=== PATIENT | male | born 1950 | race Caucasian/White ===

== ENCOUNTER 2023-05-03 10:27 | Outpatient (OUT) | payer MEDICARE, BC, SELFPAY ==
[2023-05-03 11:04] LABS: Basophils Absolute Auto 0.1 10^3/uL (0.0-0.1); Basophils Percent Auto 0.9 % (0.2-2.0); Eosinophils Absolute Auto 0.2 10^3/uL (0.0-0.7); Eosinophils Percent Auto 2.8 % (0.9-7.0); Hematocrit 42.6 % (42.0-54.0); Hemoglobin 13.7 g/dL (14.0-18.0); Immature Granulocytes Abs Auto 0.01 10^3/uL (0.00-0.03); Immature Granulocytes Pct Auto 0.2 % (0.0-0.5); Lymphocytes Absolute Auto 1.1 10^3/uL (1.2-3.8); Lymphocytes Percent Auto 20.8 % (20.5-60.0); Mean Corpuscular HGB Conc 32.2 g/dL (29.9-35.2); Mean Corpuscular Hemoglobin 29.6 pg (25.9-34.0); Mean Platelet Volume 10.7 fL (9.5-13.5); Monocytes Absolute Auto 0.5 10^3/uL (0.3-0.8); Monocytes Percent Auto 10.1 % (1.7-12.0); Neutrophils Absolute Auto 3.5 10^3/uL (1.4-6.5); Neutrophils Percent Auto 65.2 % (43.0-75.0); Platelet Count 183 10^3/uL (150-450); Red Blood Count 4.63 10^6/uL (4.70-6.10); White Blood Count 5.3 10^3/uL (4.0-11.0)
[2023-05-03 13:02] LABS: Alanine Aminotransferase 21 U/L (16-63); Albumin Globulin Ratio 1.1; Albumin Level 3.6 g/dL (3.4-5.0); Alkaline Phosphatase 63 U/L (46-116); Anion Gap 8.6; Aspartate Amino Transferase 19 U/L (15-37); BUN Creatinine Ratio 18.9; Bilirubin Total 0.8 mg/dL (0.2-1.0); Carbon Dioxide 33.5 mmol/L (21.0-32.0); Chloride 103 mmol/L (98-107); Chol HDL Ratio 2.6; Cholesterol 151 mg/dL (<=200); Estimated GFR (African America >60 (>=60); Estimated GFR (Non-African Ame >60 (>=60); Globulin 3.4 g/dL; Glucose 91 mg/dL (74-106); HDL Cholesterol 58 mg/dL (40-60); Potassium 4.1 mmol/L (3.5-5.1); Sodium 141 mmol/L (136-145); Triglycerides 50 mg/dL (<=150)
== END 2023-05-03 10:28 | disposition home or self-care (01) ==
LOC: LAB 10:33
PROVIDERS: PCP Nurse Practitioner Family; Visit Provider Nurse Practitioner Family
DX: E78.2 Mixed hyperlipidemia (principal); N40.0 Benign prostatic hyperplasia without lower urinary tract symptoms
CPT/HCPCS: 36415; 80053; 80061; 85025

== ENCOUNTER 2024-03-25 09:00 | Outpatient (OUT) | payer MEDICARE, BC, SELFPAY ==
--- NOTE | 2024-03-25 09:06 | ECG_ITS ---
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
--- NOTE | 2024-03-25 09:32 | XR_ITS ---
The [address] [address] Patient Name: JORGE BURGOS MRN: [id number] date: 1950 Sex: M Assigned Patient Location: [facility] Current Patient Location: [facility] Accession/Order Number: [id number] Exam Date: 03/25/2024 09:55 Report Date: 03/25/2024 10:26 At the request of: LAINA HOOKS Procedure: XR chest 2V PROCEDURE: XR chest 2V DATE: 03/25/2024 9:55 AM EST COMPARISONS: None. CLINICAL INDICATION: 74 years Male Preop exam FINDINGS: The cardiomediastinal silhouette and pulmonary vasculature are within normal limits. The lungs are clear. There is no evidence of pleural effusion or pneumothorax. It appears there may be a hiatal hernia overlying the lower posterior mediastinum difficult to perfectly evaluated on these images. There is mild thoracic and upper lumbar degenerative spondylosis noted on these images. There is moderate thoracic kyphosis. Frontal view suggests moderate scoliosis of the lower thoracic spine convexity toward the left and of the upper lumbar spine convexity toward the right. XR/XR chest 2V IMPRESSION: No evidence of acute abnormalities. Findings as discussed above. Electronically authenticated by: MUSHTAQ FISHER Date: 03/25/2024 10:26
--- NOTE | 2024-03-25 09:50 | P.GSHP_ITS ---
History of Present Illness History of Present Illness Chief complaint: bph Narrative: Patient presents for preadmission testing. The patient states he had an elevated PSA and previous prostate biopsies, he continues to have burning with urination, incomplete bladder emptying, and nocturia with postvoid dribbling. Patient denies hematuria, abdominal pain, fever, nausea, vomiting, or any other complaints. Review of Systems ROS Narrative REVIEW OF SYSTEMS: Negative except as stated in HPI, ten or more systems reviewed. Constitutional: No fever, chills, weakness ENT: No sore throat or epistaxis Cardiovascular: No edema, chest pain, palpitations, or activity intolerance Respiratory: No cough, chronic intermittent shortness of breath and wheezing Musculoskeletal: No joint pain or swelling Gastrointestinal: No abdominal pain, constipation, diarrhea, or vomiting Neurological: No numbness, tingling, weakness, or headache Psychiatric: No mood changes [facility] Medical History (Updated 03/25/24 @ 09:46 by Reyna Smith NP) Environmental allergies ?Z91.09 - Other allergy status, other than to drugs and biological substances (ICD-10) Arthritis ?M19.90 - Unspecified osteoarthritis, unspecified site (ICD-10) Knee pain ?M25.569 - Pain in unspecified knee (ICD-10) Chronic obstructive pulmonary disease ?J44.9 - Chronic obstructive pulmonary disease, unspecified (ICD-10) Ocular migraine ?G43.109 - Migraine with aura, not intractable, without status migrainosus (ICD-10) Elevated PSA ?R97.20 - Elevated prostate specific antigen [PSA] (ICD-10) Erectile dysfunction ?N52.9 - Male erectile dysfunction, unspecified (ICD-10) Dyspnea on exertion ?R06.09 - Other forms of dyspnea (ICD-10) High cholesterol ?E78.00 - Pure hypercholesterolemia, unspecified (ICD-10) Delayed recovery from anesthesia Tremor ?R25.1 - Tremor, unspecified (ICD-10) BPH with obstruction/lower urinary tract symptoms ?N40.1 - Benign prostatic hyperplasia with lower urinary tract symptoms (ICD- 10) ?N13.8 - Other obstructive and reflux uropathy (ICD-10) Esophageal stricture ?K22.2 - Esophageal obstruction (ICD-10) Esophageal dilatation ?K22.89 - Other specified disease of esophagus (ICD-10) Nasal polyp ?J33.9 - Nasal polyp, unspecified (ICD-10) Surgical History (Updated 03/25/24 @ 09:31 by Reyna Smith NP) H/O eye surgery ?Z98.890 - Other specified postprocedural states (ICD-10) H/O nasal polypectomy ?Z98.890 - Other specified postprocedural states (ICD-10) ?Z87.09 - Personal history of other diseases of the respiratory system (ICD- 10) History of esophagogastroduodenoscopy (EGD) ?Z98.890 - Other specified postprocedural states (ICD-10) History of colonoscopy ?Z98.890 - Other specified postprocedural states (ICD-10) Hx of prostate biopsy ?Z98.890 - Other specified postprocedural states (ICD-10) Family History (Updated 03/25/24 @ 09:31 by Reyna Smith NP) Other Family history of colon cancer Family history of heart disease Family history of hypertension Family history of myocardial infarction Social History (Updated 03/25/24 @ 09:24 by Reyna Smith NP) Within the past year, how often did you have a drink containing alcohol: monthly or less Smoking status: Never smoker Non-prescribed substance use: denies use Previous occupational history: Retired Highest level of school completed/degree received: high school graduate Meds Home Medications and Allergies Home Medications ?Medication ?Instructions ?Recorded ?Confirmed ?Type albuterol sulfate 90 mcg/actuation 2 inh inhalation Q4H PRN shortness 03/25/24 03/25/24 History aerosol inhaler (Ventolin HFA) of breath or wheezing ezetimibe 10 mg-simvastatin 40 mg 1 tab PO DAILY 03/25/24 03/25/24 History tablet olopatadine 0.2 % eye drops (Eye 1 drp ophthalmic (eye) DAILY 03/25/24 03/25/24 History Allergy Itch Relief) pantoprazole 40 mg tablet,delayed 40 mg PO DAILY 03/25/24 03/25/24 History release propranolol 40 mg tablet 40 mg PO BID tremor 03/25/24 03/25/24 History tadalafil 10 mg tablet 10 mg PO DAILY 03/25/24 03/25/24 History tamsulosin 0.4 mg capsule 0.4 mg PO DAILY 03/25/24 03/25/24 History Allergies Allergy/AdvReac Type Severity Reaction Status Date / Time tomato Allergy tongue Verified 03/25/24 09:22 swelling Exam Narrative Exam Narrative: Constitutional: Awake, alert, comfortable, well-appearing, nontoxic, interactive, vital signs as charted Head: Normocephalic, atraumatic Neck: Supple, normal appearance, normal range of motion, no meningeal signs, no lymphadenopathy Respiratory: No respiratory distress, breath sounds clear Cardiovascular: Regular rate and rhythm, strong and regular heart tones Abdomen: Nontender, normal bowel sounds, soft, no CVA tenderness Musculoskeletal: Normal gait, no swelling or edema Skin: No rashes or induration, no lesions, only visible skin inspected Neuro: Mild tremor bilateral hands, normal sensation, no other gross neurological deficits Psychiatric: Oriented ?3, normal affect Assessment and Plan Assessment and Plan (1) BPH with obstruction/lower urinary tract symptoms: (2) Elevated PSA: Plan Cystoscopy, TURP scheduled with Dr. Mosley April 04, 2024.
[2024-03-25 10:03] LABS: Basophils Absolute Auto 0.1 10^3/uL (0.0-0.1); Basophils Percent Auto 0.9 % (0.2-2.0); Eosinophils Absolute Auto 0.1 10^3/uL (0.0-0.7); Eosinophils Percent Auto 2.1 % (0.9-7.0); Hemoglobin 14.7 g/dL (14.0-18.0); Immature Granulocytes Abs Auto 0.02 10^3/uL (0.00-0.03); Immature Granulocytes Pct Auto 0.3 % (0.0-0.5); Lymphocytes Absolute Auto 1.2 10^3/uL (1.2-3.8); Lymphocytes Percent Auto 18.2 % (20.5-60.0); Mean Corpuscular HGB Conc 33.4 g/dL (29.9-35.2); Mean Corpuscular Hemoglobin 29.9 pg (25.9-34.0); Mean Corpuscular Volume 89.4 fL (80.0-94.0); Mean Platelet Volume 10.2 fL (9.5-13.5); Monocytes Absolute Auto 0.6 10^3/uL (0.3-0.8); Monocytes Percent Auto 8.7 % (1.7-12.0); Neutrophils Absolute Auto 4.6 10^3/uL (1.4-6.5); Neutrophils Percent Auto 69.8 % (43.0-75.0); Platelet Count 214 10^3/uL (150-450); Red Blood Count 4.92 10^6/uL (4.70-6.10); Red Cell Distribution Width 11.9 % (11.0-15.0); White Blood Count 6.6 10^3/uL (4.0-11.0)
[2024-03-25 10:15] LABS: INR 1.04; Partial Thromboplastin Time 26.4 sec (22.3-36.2)
[2024-03-25 11:31] LABS: Anion Gap 12.2; BUN Creatinine Ratio 21.1; Calcium 9.3 mg/dL (8.5-10.1); Carbon Dioxide 29.4 mmol/L (21.0-32.0); Chloride 106 mmol/L (98-107); Estimated GFR (African America >60 (>=60 mL/min/1.73m^2); Estimated GFR (Non-African Ame >60 (>=60 mL/min/1.73m^2); Glucose 106 mg/dL (74-106); Potassium 4.6 mmol/L (3.5-5.1); Sodium 143 mmol/L (136-145)
[2024-03-25 12:22] LABS: Prostate Specific Antigen Dx 12.23 ng/mL (<=4.00)
== END 2024-03-25 09:01 | disposition home or self-care (01) ==
LOC: PST 09:01
PROVIDERS: PCP Nurse Practitioner Family; Visit Provider Urology
DX: Z01.810 Encounter for preprocedural cardiovascular examination (principal); Z01.812 Encounter for preprocedural laboratory examination; Z01.818 Encounter for other preprocedural examination; N40.1 Benign prostatic hyperplasia with lower urinary tract symptoms
CPT/HCPCS: 71046; 80048; 84153; 85025; 85610; 85730; 93005; G0463

== ENCOUNTER 2024-04-04 12:35 | Day surgery (SDC) | payer MEDICARE, BC, SELFPAY ==
[2024-03-25 09:40] VITALS: BP 124/67; PULSE 60; TEMP 36.6; O2SAT 99; BMI 22.0
[2024-04-04] VITALS (13 sets, daily range): BP systolic 115–152; BP diastolic 64–79; PULSE 52–71; TEMP 36.2–36.6; O2SAT 91–96; BMI 22.0
[2024-04-04] MEDS: LACTATED RINGER'S SOLUTION 1,000 ML 50 ML IV ×2 (13:03→15:30)
[2024-04-04] MEDS: LEVOFLOXACIN IN DEXTROSE 5 % 500 MG/100 ML PREMIX 100 MG IV (13:56)
--- NOTE | 2024-04-04 16:18 | PM.URSON ---
Urology Surgery Operative Note Operative Note Procedure Date: 04/04/24 Time Out Performed: yes Pre-op Diagnosis: BPH with LUTS refractory to medications Post-op Diagnosis: same as pre-op Procedures performed: 1. Cystoscopy. 2. Transurethral resection of the prostate. Anesthesia: GETA Primary Surgeon: Guero Mosley Complications: None Estimated blood loss (mL): 30 Findings: Very long capacious obstructing lateral lobes. Large median lobe Specimens: Prostate chips Drains: 22 Belgian three-way coud? Gonzalez catheter in the bladder taped to traction and CBI Indications for Procedures: This gentleman has a long history of BPH with LUTS. He takes the Flomax and tadalafil and he is still very symptomatic. He has a chronically elevated PSA and chronic prostatitis by biopsy. He is desirous for TURP. He has signed an informed consent after risks were explained. Some of these risks include bleeding, infection, anesthesia, retrograde ejaculation, incontinence both temporary and permanent, erectile dysfunction and possible need for further operations just to name a few. Detailed description of Procedure: The patient was brought to the operating room and placed on the operating room table in the supine position. SCDs were placed on the lower extremities and turned on and functioning during the entire case. Timeout was done by all parties in the room. We all agreed upon the patient's identification and the planned procedures for this patient. Genn. anesthesia was then administered. The patient was then repositioned into the modified dorsal lithotomy position. All pressure points were satisfactorily padded. Genitalia were sterilely prepped and draped in usual fashion. I started by passing a 26 Belgian Olympus resectoscope with a standard bipolar loop electrode per urethra and into the bladder. The ureteral orifices were marked with a loop electrode. I then started on the median lobe and uniformly resected this down to the bladder neck level. It was very capacious. I then brought the scope back to the Veru and resected the left lateral lobe from the bladder neck to the apex. Purulence pockets were unroofed. This was incredibly capacious. There was a diffuse ooze of blood during the entire case. The right lateral lobe and capacious anterior tissue was then resected. Purulence pockets were unroofed here also. Intermittently I had to switch to the vaporization loop electrode to maintain hemostasis. The apex was then opened up because the apical lobes were coapting rather tightly distal to the Veru. The Ilich evacuator was used numerous times to get the chips out of the bladder and these were sent for permanent sections. Upon completion the prostatic urethra and bladder neck were now wide open. There was no bleeding. There were no chips remaining in the bladder. The scope was then removed. I then placed a 22 Belgian three-way coud? Gonzalez catheter in the bladder. It was manually irrigated with a Dione syringe to verify placement. 30 cc of fluid was placed in the balloon. It was taped to traction and CBI was started. It irrigated to a light pink color. The anesthetic was then reversed. He was then transferred to a [facility] bed and wheeled to PACU in stable condition. Urinary Catheter Management Urinary Catheter Management 3-way Urethral: Cath placed during this visit: no
[2024-04-04] MEDS: SOLIFENACIN SUCCINATE 10 MG TABLET PO (17:35)
[2024-04-04] MEDS: 0.9 % SODIUM CHLORIDE 1,000 ML 80 ML IV (17:36)
[2024-04-04] MEDS: SODIUM CHLORIDE IRRIG SOLUTION 3,000 ML 3000 ML IRR ×6 (17:37→23:21)
[2024-04-04] MEDS: PROPRANOLOL HCL 20 MG TABLET 40 MG PO (20:56)
[2024-04-05] VITALS: BP 110/62; PULSE 56; TEMP 36.6; O2SAT 92
[2024-04-05] MEDS: SODIUM CHLORIDE IRRIG SOLUTION 3,000 ML 3000 ML IRR ×5 (00:23→03:52)
[2024-04-05 04:00] VITALS: BP 109/63; PULSE 69; TEMP 36.7
--- NOTE | 2024-04-05 05:11 | PC.NURSE ---
0500 traction released and CBI weaned
[2024-04-05] MEDS: OMEPRAZOLE 40 MG CAPSULE.DR PO (06:08)
[2024-04-05 08:40] VITALS: BP 112/66; PULSE 83; TEMP 36.9; O2SAT 95
[2024-04-05] MEDS: PROPRANOLOL HCL 20 MG TABLET 40 MG PO (08:49)
[2024-04-05] MEDS: SOLIFENACIN SUCCINATE 10 MG TABLET PO (08:49)
== END 2024-04-05 09:45 | disposition home or self-care (01) ==
LOC: SURGOUT 16:15 → MS 17:12 → SURGOUT 04-05 07:46 → MS 04-05 07:52
PROVIDERS: PCP Nurse Practitioner Family; Visit Provider Urology
PROC: (CPT 52601; principal; 2024-04-04 13:30)
DX: N40.1 Benign prostatic hyperplasia with lower urinary tract symptoms (principal); N52.9 Male erectile dysfunction, unspecified; R25.1 Tremor, unspecified; R97.20 Elevated prostate specific antigen [PSA]; I10 Essential (primary) hypertension; J44.9 Chronic obstructive pulmonary disease, unspecified; N41.1 Chronic prostatitis; E78.5 Hyperlipidemia, unspecified; K21.9 Gastro-esophageal reflux disease without esophagitis; K44.9 Diaphragmatic hernia without obstruction or gangrene
CPT/HCPCS: 52601; 36415; 88305; J0131; J1100; J2250; J2371; J2405; J2704; J3010

== ENCOUNTER 2024-05-06 10:10 | Outpatient (OUT) | payer MEDICARE, BC, SELFPAY ==
[2024-05-06 10:43] LABS: Chol HDL Ratio 2.8; Cholesterol 166 mg/dL (<=200); HDL Cholesterol 60 mg/dL (40-60); LDL Cholesterol Calculated 94.4 mg/dL; Triglycerides 58 mg/dL (<=150); VLDL CHOLESTEROL 11.6 mg/dL
== END 2024-05-06 10:11 | disposition home or self-care (01) ==
LOC: LAB 10:13
PROVIDERS: PCP Nurse Practitioner Family; Visit Provider Nurse Practitioner Family
DX: Z00.00 Encounter for general adult medical examination without abnormal findings (principal); E78.2 Mixed hyperlipidemia
CPT/HCPCS: 36415; 80061

== ENCOUNTER 2025-05-09 09:51 | Outpatient (OUT) | payer MEDICARE, BC, SELFPAY ==
--- OUTSIDE RECORDS SUMMARY | 2025-05-09 04:42 | XMS_ITS | Continuity of Care Document ---
Author Organization [facility] Address [address] [place] [address] Phone Care Team Providers Care Pulmonary Physician Name Role Phone Jessica Wilcox APRN Primary Care Provider Jessica Wilcox APRN Attending Provider Care Teams Patient Care Team Team Status: Active Member Role/Relationship Status Dates Jessica Wilcox APRN PIPE OUT WORKER-C Primary Care Provider Active Patient Care Team Team Status: Inactive Member Role/Relationship Status Dates Jessica Wilcox APRN PIPE OUT WORKER-C Primary Care Provider Active Start: May 092024 End: May 09, 2025Jessica Wilcox APRN PIPE OUT WORKER-CAttending ProviderActive Start: May 09, 2025 End: May 09, 2025 Chief Complaint and Reason for Visit Chief Complaint Admit Date Wellness May 09, 2025 8:55am Reason for Visit Admit Date Impaired fasting glucose May 09, 2025 8:55am Mixed hyperlipidemia May 09, 2025 8:55am Allergies, Adverse Reactions, Alerts Allergen Type Severity Reaction Last Updated Verified Status cat dander Allergy Unknown Unknown Reaction May 09, 2025 8:40am Yes Active tomato Allergy Unknown Unknown Reaction May 09, 2025 8:40am Yes Active Social History Smoking Status Status Start Date End Date Date of Observa tion Never smoked tobacco (finding) May 06, 2024 7:53am Observation Status Observation Response Date of Response Legal Sex Male (finding) Sex Assigned At BirthMaleOctober 1949Sexual OrientationUnknownUnknown Family History Relationship Condition Age at Onset Recorded Date/T trista father Heart disease Unknown DeceasedUnknownmotherDeceasedUnknownsisterHeart diseaseUnknownDeceasedUnknown Family history of colon cancerUnknownMalignant neoplasmUnknownfatherHeart diseaseUnknownmotherChronic mental illnessUnknownsisterMalignant neoplasmUnknown motherDiabetes mellitusUnknownfatherHeart diseaseUnknownsisterMalignant neoplasm UnknownsisterDisorder of thyroidUnknownsisterHyperlipidemiaUnknown Problems Active Problems Problem Diagnosis/Recorded Date Onset Date Status C omments Medicare annual wellness vis , subsequent May 06, 2024 9:32am Unknown Active Essential tremorFebruary 2023 1:38pmUnknownActiveHistory of transurethral resection of prostateNov2023 8:57tdLzxadimIfqxgc11/14/2023High cholesterolFebruary 2023 1:11pmUnknownActiveGait instabilitySeptember 2024 7:09amUnknownActiveDysphagiaFebruary 2023 2:07pmUnknownActiveDiarrhea July 04, 2023 8:41amUnknownActiveMixed hyperlipidemiaFebruary 2023 1:38pmUnknownActiveImpaired fasting glucoseDecember 2023 9:54amUnknown ActiveCOPD (chronic obstructive pulmonary disease)July 04, 2023 1:11pm UnknownActiveHistory of colonic polypsFebruary 2023 2:07pmUnknownActive Esophageal strictureFebruary 2023 1:38pmUnknownActiveSkin lesion of face November 15, 2023 8:44amUnknownActiveHiatal herniaFebruary 2023 1:11pm UnknownActive Medications Medication Status Dose Units Route Directions Qty Days Refills S tart Date Stop Date End Date Reason(s) Instructions Adherence Pantoprazole 40 mg tablet,delayed release (DR/EC) Discontinued 40 MG PO Daily 90 90 3 Oct 11:00pm September 17, 2024 2:16pmTake 1 tablet orally once a day.Pantoprazole 40 mg tablet,delayed release (DR/EC)Qkuiuq53DMSFGzwbr82972Ljlda 2024 2:15pmTake 1 tablet orally 30 minutes before morning meal.Complies with drug therapy Propranolol 40 mg yhuqnwXrocgddbskqn70TMWBNudom blpmn7686Sbzvgx 2024 1:13pmNov2024 8:26amEssential tremor Essential tremorPropranolol 40 mg gcgvorUdgmly19AWVODyjfk ihjvq755081Onuxbmxe 12th, 2025 8:26amEssential tremor Essential tremorComplies with drug therapyAlbuterol Sulfate 90 mcg/actuation HFA aerosol zqeubxeFvmmepghmdwb1BBFMCLNTOHZEGCTwwuw 4 hours as needed for shortness of breath or wheezingMarch 2023 11:00pmDeceer 2023 9:34am FreeTextSi puff as needed Inhalation every 4 hrs; Note: Source Status: Refill; Refills: 3; Provider: Jeri Corderotimibe-Simvastatin 10-40 mg yquweqFwoviocbzoca6JSLKDSceic57317Yepsejbd 2023 9:32amDecember 2024 9:29amMixed hyperlipidemia Mixed hyperlipidemiaAlbuterol Sulfate 90 mcg/actuation HFA aerosol inhaler Drytgrlsbwsl2OQQHFZCNXLWUOLGcjbf 4 hours as needed for shortness of breath or wheezing8.5903D2023 9:32amDecember 2024 9:29amChronic obstructive pulmonary disease Chronic obstructive pulmonary disease, unspecifiedEzetimibe-Simvastatin 10-40 mg edmsvgPdylrjlmmurc9QGHTJLqmfiFymbcwem 2023 12:00amDecember 2023 9:34amTamsulosin 0.4 mg capsuleDiscontinued0.4MGPODailyFebruary 2023 12:00amJune 2023 8:06amTadalafil 5 mg kvzamoKrkyiwnhqcre0EUIJNlrglRmzqyxgk 2023 12:00amJune 2023 8:06amfor prostatePropranolol 40 mg tablet Vorvkynzexfm09ZQGPYfczw dailyFebruary 2023 12:00amAugust 2024 1:14pm Pantoprazole 40 mg tablet,delayed release (DR/EC)Hxlredrcytyo65WEOFHaspaDysvvahn 2023 12:00amMarch 2023 7:25amTamsulosin 0.4 mg capsuleDiscontinued 0.8MGPODailyJune 2023 8:05amDecember 2023 9:05amTadalafil 5 mg znnefeTqdyuz68SHFRHdkuaTrpo 2023 8:05amfor prostateComplies with drug therapyTamsulosin 0.4 mg capsuleActive0.4MGPODaily at bedtimeDeceer 2024 12:00amComplies with drug therapyEzetimibe-Simvastatin 10-40 mg ndjwbrFvqaxj7VTC USJrlwp86617Pxmtneiw 2024 9:28amMixed hyperlipidemia Mixed hyperlipidemiaComplies with drug therapyAlbuterol Sulfate 90 mcg/actuation HFA aerosol lazcensAcwkyd6TUOLONAUDNLTIMGyklr 4 hours as needed for shortness of breath or wheezing8.5903Deceer 2024 9:28amChronic obstructive pulmonary disease Chronic obstructive pulmonary disease, unspecifiedComplies with drug therapy Immunizations Immunization Event Date Not Given Reason Dose Number Contemporary Or Modern Dancer Lot Number Reason(s) Given Vaccine Information Statement (VIS) Detail Administration Location COVID-19 mRNA-1273 (Moderna) June 24, 2020 COVID-19 mRNA-1273 (Moderna)July 24OVID-19 mRNA-1273 (Moderna)March 16OVID-19 mRNA-1273 (Moderna)August 24OVID-19 (MODERNA) 12Y and olderSeptember OVID-19 mRNA Bivalent Booster (Moderna)February 22OVID-19 mRNA Bivalent Booster (Moderna)September 12, 2022Fluzone QIV High- Dose 65YR+February 16, 2021Fluzone QIV High-Dose 65YR+February 22, 2022 Influenza vaccine, quadrivalent, adjuvantedSeptember 2022Novel Influenza M8N7Vgynrzku 2008Pneumococcal Conjugate Vaccine, 13 valentDecember 2019Pneumococcal Conjugate Vaccine, 20 valentDecember [id number] [facility], preF3, adj, pfJanuary 2023Zoster Vaccine Recombinant, AdjuvantedApril 2020Zoster Vaccine Recombinant, AdjuvantedJune 2020 Tetanus, Diphtheria, Pertussis (Tdap)April 22, 2019Trivalent Influenza VaccineNovember 2014Trivalent Influenza VaccineNovember 2015Trivalent Influenza VaccineDecemb2018Trivalent Influenza VaccineSeptember 2019 Vital Signs Vital Reading Result Reference Range Collection Date/Time Height 69 [in_i] May 09, 2025 8:57yvFbvpya71.58 kgMay 09, 2025 8:57amBody Sxovsooxdnw22.0 [degF]97.6-99.0May 09, 2025 8:57amHeart Rate69 /wue67-398 May 09, 2025 8:57amOxygen saturation by Pulse %95-100May 09, 2025 8:57amBP Gzlfcolv051 mm[Hg]100-140May 09, 2025 8:57amBP Zuazgvdpg16 mm[Hg]60-100ce2024 8:57amBMI (Body Mass Index)21.9 kg/z4ZqexemarMay 09, 2025 8:57am Advance Directives Advance Directive Response Recorded Date/ Time Advance Directives No June 09, 2023 10:27am Insurance Providers Guarantor Martine Esparza Address [address] [id number] Info.Home Phone: Payer Group Member ID Coverage Type Subscriber Relationship to Subscriber Effective Date Expiration Date Yuniel DONALDSON [id number] [place] Id: [id number] [id number] Home Phone: Email: [email or web address] [id number] [place] Id: [id number] [place] [address] Home Phone: Email: [email or web address] Encounters Encounter Location(s) Arrival/Admit Date Discharge/Departure Date Discharge/Departure Disposition Provider(s) Departed Physician/ Provider Office Visit -[facility] May 09, 2025 8:55am May 09, 2025 9:41am Discharged to home care or self care (routine discharge) Jessica Wilcox APRN CNP Recent Diagnosis Onset Date Admit Date Impaired fasting glucose Unknown Decee r 2024 8:55am Mixed hyperlipidemia Unknown May 092024 8:55am Assessments Diagnosis Onset Date Resolution Status Admit Date Impaired fasting glucose acuteDece2024 8:55amMixed hyperlipidemiaacuteDece2024 8:55am Plan of Treatment Future Tests Future scheduled test information is unavailable Pending Tests Test Name Ordered Date Scheduled Date Comprehensive Metabolic Panel May 09 9:27am Future Visits Future appointment information is unavailable Future Procedures Procedure Name Ordered Date Scheduled Date Complete Blood Count Auto Diff May 09 9:27am Lipid PanelDece2024 9:27am Future Medications Future medication information is unavailable Patient Instructions Patient instructions are unavailable
--- OUTSIDE RECORDS SUMMARY | 2025-05-09 09:56 | XMS_ITS | Clinical Summary ---
Author Organization [facility] Address [address] [place] [address] Phone Care Team Providers Care Roving Winder Name Role Phone Jessica Wilcox APRN-[employer] Primary Care Pro vider Immunizations ImmunizationAdministration DatesNext DueModerna COVID-19 vaccine, 12 years and older (50mcg/0.5mL)(Spikevax)02/11/2023Moderna COVID-19 vaccine, bivalent, blue cap/huerta label *Check age/dose*09/12/2022,02/22/2022 Social History Tobacco UseTypesPacks/DayYears UsedDateSmoking Tobacco: Never AssessedSex and Gender InformationValueDate RecordedSex Assigned at RygdvVwkr40/11/2023 9:53 AM EDTLegal OmzXcss86/26/2022 5:38 PM ESTGender LwflgzrbPwkk72/11/2023 9:53 AM EDT Sexual OrientationNot on file Last Filed Vital Signs Vital SignReadingTime TakenCommentsBlood Uxqfgpiv009/6905 9:29 AM EDT Lngtj728210/18/2022 9:29 AM LGHPmhevdgajcj88.7 ??C (98 ??F)04/27/2022 9:37 AM EST Respiratory Rate--Oxygen Hgbifgvykn39%04/26/2021 8:19 AM ESTInhaled Oxygen Concentration--Vfmjye87 kg (141 lb)10/18/2022 9:29 AM TNWClvkhv153.3 cm (5' 9 ) 10/18/2022 9:29 AM EDTBody Mass Index20.8205 9:29 AM EDT Plan of Treatment Health MaintenanceDue DateLast DoneCommentsRSV High Risk: (Elderly (60+) or Population) (1 - 1-dose 75+ series)2024Medicare Annual Wellness Visit (AWV)/, 04/27/2022, 04/26/2021, Additional history existsInfluenza Vaccine (#1), 02/10/2023, 02/22/2022, Additional history existsCOVID-19 Vaccine ( season)2025 02/11/2023, 09/12/2022, 02/22/2022, Additional history existsLipid Panel , 04/24/2020, 04/22/2019, Additional history exists DTaP/Tdap/Td Vaccines (3 - Td or Tdap), 02/23/2009Hepatitis C DbepkssbmUljpkjpol85/20/2152CkpbwrmijmdKlxjeeijucar65/21/2019Colorectal Cancer ScreeningDiscontinuedIrritable Bowel YolucqyzWexixrivlchp56/21/2019Pneumococcal UivrvmgWewssgppj60/04/2020, 03/26/2014Zoster WaiynnxbMybnxwxgm77/29/2021, 09/07/2020, 06/12/2009CT ColonographyDiscontinuedFIT-DNA (Cologuard)Discontinued FITDiscontinuedHIB VaccinesAged OutNo longer eligible based on patient's age to complete this topicHPV VaccinesAged OutNo longer eligible based on patient's age to complete this topicHepatitis A VaccinesAged OutNo longer eligible based on patient's age to complete this topicHepatitis B VaccinesAged OutNo longer eligible based on patient's age to complete this topicIPV VaccinesAged OutNo longer eligible based on patient's age to complete this topicMeningococcal VaccineAged OutNo longer eligible based on patient's age to complete this topic Rotavirus VaccinesAged OutNo longer eligible based on patient's age to complete this topicSigmoidoscopyDiscontinued Procedures Procedure NamePriorityDate/TimeAssociated DiagnosisCommentsLIPID PANELRoutine 04/26/2021 9:23 AM EST DTAWJHYJQVE42/21/2019 HEPATITIS C PHDKUNMPVfhylnd64/20/2017 10:20 AM EST from Last 3 Months or Most Recently Relevant to Health Maintenance Results * Lipid Panel (04/26/2021 9:23 AM EST)ComponentValueRef RangeTest MethodAnalysis TimePerformed AtPathologist NquhqclivLbfofyqcmgd1424 - 199 mg/dLCLARKS SUMMIT [facility] Comment: . ?AGE ?DESIRABLE ?? BORDERLINE HIGH ?? HIGH 0-19 Y 0 - 169 170 - 199 >/= 200 20-24 Y 0 - 189 190 - 224 >/= 225 >24 Y 0 - 199 200 - 239 >/= 240 All ranges are based on fasting samples. Specific therapeutic targets will vary based on patient-specific cardiac risk. . Pediatric guidelines reference:Pediatrics 2011, 128(S5). Adult guidelines reference: NCEP ATPIII Guidelines, ??DIANA 2001, 258:2486-97 . Venipuncture immediately after or during the administration of Metamizole may lead to falsely low results. Testing should be performed immediately prior to Metamizole dosing. HDL52.1mg/dLCMC LABComment: . ?AGE ?VERY LOW ?? LOW ? NORMAL ?HIGH ?? 0-19 Y < 35 < 40 40-45 ---- 20-24 Y ---- < 40 >45 ---- >24 Y ---- < 40 40-60 >60 . Cholesterol/HDL Ratio3.1CL[facility] LABComment: REF VALUES DESIRABLE < 3.4 HIGH RISK > 5.0 AKL464 - 99 mg/dLSENTARA ALBEMARLE MEDICAL CENTERC LABComment: . ? NEAR ?BORD ?AGE ?DESIRABLE ??OPTIMAL ?HIGH ? HIGH ? VERY HIGH 0-19 Y 0 - 109 --- 110-129 >/= 130 ---- 20-24 Y 0 - 119 --- 120-159 >/= 160 ---- >24 Y 0 - 99 100-129 130-159 160-189 >/=190 . XCGN368 - 40 mg/dLCLAR[facility] CRTNodaoloksuagi237 - 149 mg/dLCLARKS SUMMIT [facility] LABComment: . ?AGE ?DESIRABLE ?? BORDERLINE HIGH ?? HIGH ? VERY HIGH 0 D-90 D ?19 - 174 ? ---- ? ---- ?---- 91 D- 9 Y 0 - 74 75 - 99 >/= 100 ---- 10-19 Y 0 - 89 90 - 129 >/= 130 ---- 20-24 Y 0 - 114 115 - 149 >/= 150 ---- >24 Y 0 - 149 150 - 199 200- 499 >/= 500 . Venipuncture immediately after or during the administration of Metamizole may lead to falsely low results. Testing should be performed immediately prior to Metamizole dosing. Specimen (Source)Anatomical Location / LateralityCollection Method / Volume Collection TimeReceived Time04/26/2021 9:23 AM EST04/26/2021 4:59 PM EST Narrative Authorizing ProviderResult TypeResult StatusMarion Mosley MDCOMMUNITY [facility] BLOOD ORDERABLESFinal ResultPerforming OrganizationAddressCity/State/ZIP CodePhone Number [facility] * COLONOSCOPY (06/11/2018)Anatomical RegionLateralityModalityEndoscopy Narrative 06/11/2018 Ordered by an unspecified provider. Authorizing ProviderResult TypeResult StatusOnbase ConversionENDOSCOPY PROCEDURE ORDERABLESFinal Result * Hepatitis C Antibody (04/10/2017 10:20 AM EST)ComponentValueRef RangeTest MethodAnalysis TimePerformed AtPathologist SignatureHepatitis C AbNON-REACTIVE NONREACTIVECLARKS SUMMIT STATE [facility]OSPITAL LABComment: Patients receiving more than 5 mg/day of biotin may have interference in test results. ??A sample should be taken no sooner than eight hours after ??previous dose. Contact [phone] for additional information. Specimen (Source)Anatomical Location / LateralityCollection Method / Volume Collection TimeReceived Time04/10/2017 10:20 AM EST04/10/2017 3:57 PM EST Narrative Authorizing ProviderResult TypeResult StatusMarion Mosley MDLAB BLOOD ORDERABLESFinal ResultPerforming OrganizationAddressCity/State/ZIP CodePhone Number [facility] from Last 3 Months or Most Recently Relevant to Health Maintenance Insurance * Guarantor: Yosef Esparza EAccount TypeRelation to PatientDate of BirthPhone Billing AddressPersonal/KaxqhcKzmc[id number] [place] [id number] Care Teams Team MemberRelationshipSpecialtyStart DateEnd Date Jessica Wilcox, AZRA[employer] [address] [place] [address] PCP - GeneralFamily Medicine11/25/24
--- OUTSIDE RECORDS SUMMARY | 2025-05-09 09:56 | XMS_ITS | Clinical Summary ---
Author Organization [facility] Address [address] [facility] [place] [address] Care Team Providers Care Rod Welder Name Role Phone Jessica Wilcox NP Primary Care Provider Margy Varela FRUIT CULLER Unavailable [phone] Allergies Active AllergyReactionsCriticalityNoted DateCommentsCat DanderRunny nose, Shortness of dhtskfJhcg61/08/3731EwfmbgOincswvuCosdgp22/16/2024 Medications MedicationSigDispense QuantityRefillsLast FilledStart DateEnd DateStatus pantoprazole (ProtoNix) 40 MG EC tablet Take 40 mg by mouth in the morning. Take before meals. Do not crush, chew, or split..Active tadalafil (Cialis) 5 MG tablet Take 10 mg by mouth DailyActive albuterol HFA 90 mcg/act inhaler Inhale 2 puffs every 4 (four) hours if needed for wheezingActive ezetimibe-simvastatin (Vytorin) 10-40 MG tablet Take 1 tablet by mouth at bedtimeActive olopatadine (Patanol) 0.1 % ophthalmic solution Administer 1 drop into both eyes if needed for allergiesActive propranolol (Inderal) 40 MG tablet Indications:Essential tremorTake 1 tablet by mouth twice a day. Take doses at 8:00 am and 2:00 pm. Do not start before September 28, 2024. 180 tablet 5Active Active Problems ProblemNoted DateDiagnosed DateEssential oliuph9502/04/2024 Overview (02/04/2024): It is my impression that the patient has essential tremor. He has a slightly asymmetric postural and intention hand tremor (left more prominent than right). It is possible that albuterol is enhancing this. The patient mentions some mild imbalance but otherwise has no clear evidence of Parkinson's disease on clinical exam. He reports a positive response to treatment with propranolol. Symptoms are stable recently with no significant functional disability reported by the patient. He declines any medication adjustments today. PLAN: - Continue propranolol 40 mg PO twice a day. Side effects reviewed Family History Medical HistoryRelationNameCommentsAlzheimer's diseaseMotherHyperlipidemiaMother HypertensionMotherAsthmaSiblingCancerSiblingRelationNameStatusCommentsMother Sibling Social History Tobacco UseTypesPacks/DayYears UsedDateSmoking Tobacco: NeverSmokeless Tobacco: Never Tobacco Cessation:Counseling Given: Not Answered Alcohol UseStandard Drinks/WeekCommentsYes0 (1 standard drink = 0.6 oz pure alcohol)caffeine: noneAUDIT-CAnswerDate RecordedQ1: How often do you have a drink containing alcohol?Monthly or less02/04/2024verage Number of DrinksNot on file02/04/2024Frequency of Binge DrinkingNot on file02/04/2024Sex and Gender InformationValueDate RecordedSex Assigned at KfzeqLjws12/16/2024 11:53 AM EDT Legal IksTnjx1607/28/2023 2:21 PM ESTGender WegilswdQmlb81/16/2024 11:53 AM EDT Sexual OrientationNot on file Last Filed Vital Signs Vital SignReadingTime TakenCommentsBlood Izmbsqpu261/6403 8:48 AM EDT Gqblg781408/12/2024 8:48 AM EDTTemperature--Respiratory Rate--Oxygen Fvpzysipwb18% 08/12/2024 8:48 AM EDTInhaled Oxygen Concentration--Bxlrgv60.2 kg (152 lb 9.6 oz)08/12/2024 8:48 AM CZQBqggfd115.3 cm (5' 9 )08/12/2024 8:48 AM EDTBody Mass Index22.5403 8:48 AM EDT Plan of Treatment Health MaintenanceDue DateLast DoneCommentsCOVID-19 Vaccine ( season), 08/04/2023, 02/11/2023, Additional history exists Influenza Vaccine (#1)51, 02/10/2023, 02/22/2022, Additional history hldzitUbizfesfcfaIhadnklcanov12/21/2019, 06/11/2018Colorectal Cancer ScreeningDiscontinuedPneumococcal Vaccine: 65+ OeommUyidvascc77/16/2024, 04/24/2020CT ColonographyDiscontinuedFIT-DNADiscontinuedFITDiscontinuedFOBT DiscontinuedSigmoidoscopyDiscontinued Insurance * Guarantor: Larry Esparza TypeRelation to PatientDate of BirthPhone Billing AddressPersonal/MwhfzgXjbl1950 [id number] [address] Care Teams Team MemberRelationshipSpecialtyStart DateEnd Date Jessica Wilcox NP [facility] [facility] [place] [address] [place] [address] PCP - GeneralFamily Medicine07/28/23 Margy Varela NP [facility] [place] [phone] Nurse PractitionerNeurology08/12/24
[2025-05-09 10:13] LABS: Hematocrit 43.3 % (42.0-54.0); Hemoglobin 13.8 g/dL (14.0-18.0); Immature Granulocytes Abs Auto 0.01 10^3/uL (0.00-0.03); Immature Granulocytes Pct Auto 0.1 % (0.0-0.5); Lymphocytes Absolute Auto 1.2 10^3/uL (1.2-3.8); Mean Corpuscular HGB Conc 31.9 g/dL (29.9-35.2); Mean Corpuscular Hemoglobin 28.5 pg (25.9-34.0); Mean Corpuscular Volume 89.5 fL (80.0-94.0); Platelet Count 248 10^3/uL (150-450); Red Blood Count 4.84 10^6/uL (4.70-6.10); White Blood Count 7.3 10^3/uL (4.0-11.0)
[2025-05-09 11:33] LABS: Alanine Aminotransferase 21 U/L (16-63); Albumin Globulin Ratio 0.9; Albumin Level 3.5 g/dL (3.4-5.0); Alkaline Phosphatase 85 U/L (46-116); Anion Gap 9.8; Aspartate Amino Transferase 17 U/L (15-37); Blood Urea Nitrogen 18.0 mg/dL (7.0-18.0); Calcium 8.9 mg/dL (8.5-10.1); Carbon Dioxide 33.8 mmol/L (21.0-32.0); Chloride 106 mmol/L (98-107); Cholesterol 154 mg/dL (<=200); Estimated GFR (African America >60 (>=60 mL/min/1.73m^2); Estimated GFR (Non-African Ame >60 (>=60 mL/min/1.73m^2); Globulin 3.7 g/dL; Glucose 107 mg/dL (74-106); HDL Cholesterol 54 mg/dL (40-60); Potassium 4.6 mmol/L (3.5-5.1); Sodium 145 mmol/L (136-145); Total Protein 7.2 g/dL (6.4-8.2); Triglycerides 59 mg/dL (<=150); VLDL CHOLESTEROL 11.8 mg/dL
== END 2025-05-09 09:52 | disposition home or self-care (01) ==
LOC: LAB 09:54
PROVIDERS: PCP Nurse Practitioner Family; Visit Provider Nurse Practitioner Family
DX: R73.01 Impaired fasting glucose (principal); E78.2 Mixed hyperlipidemia
CPT/HCPCS: 36415; 80053; 80061; 85025